=== PATIENT | female | born 1940 | race Caucasian/White ===

== ENCOUNTER → 2016-06-10 | Outpatient (CLI) | payer MEDICARE ==
[~2016-06-10] MED LIST: ALDACTONE25 MG PO; COREG PO; COUMADIN PO; DIAZEPAM10 MG PO; FIBER500 MG PO; GABAPENTIN400 M2 PO; HYDROCODON-ACE1 EAC5 PO; HYDROCORTISONE114 GM; LANOXIN125 MCG PO; LASIX PO; LEFLUNOMIDE10 MG PO; LOPERAMIDE HCL2 M1 PO; METAMUCIL660 GM; METOPROLOL TAR100 MG PO; NITROGLYGERIN0.4 MG SL; OMEPRAZOLE20 M2 PO; PREDNISONE5 M1 PO; PRILOSEC PO; SYNTHROID0.05 MG PO; [UNRECOGNIZED DRUG - REMARK]
== END | disposition home or self-care (01) ==
LOC: CSSDAY 12:58
PROC: 3C1ZX8Z Irrigation of Indwelling Device using Irrigating Substance, External Approach (ICD-10-PCS; principal; 2016-06-10)
DX: Z45.2 Encounter for adjustment and management of vascular access device (principal); I87.8 Other specified disorders of veins
CPT/HCPCS: G0463; J1642

== ENCOUNTER → 2016-07-10 | Outpatient (CLI) | payer MEDICARE | END | disposition home or self-care (01) | LOC: CSSDAY 09:15 | PROC: 3C1ZX8Z Irrigation of Indwelling Device using Irrigating Substance, External Approach (ICD-10-PCS; principal; 2016-07-10) | DX: Z45.2 Encounter for adjustment and management of vascular access device (principal); I87.8 Other specified disorders of veins | CPT/HCPCS: G0463; J1642 ==

== ENCOUNTER → 2016-10-08 | Outpatient (CLI) | payer MEDICARE | END | disposition home or self-care (01) | LOC: CSSDAY 10:00 | PROC: 3C1ZX8Z Irrigation of Indwelling Device using Irrigating Substance, External Approach (ICD-10-PCS; principal; 2016-10-08) | DX: Z45.2 Encounter for adjustment and management of vascular access device (principal); I87.8 Other specified disorders of veins | CPT/HCPCS: J1642 ==